=== PATIENT | male | born 1980 | race Caucasian/White ===

== ENCOUNTER → 2016-08-17 | Outpatient (REF) | LOC: WSOH 13:00 | DX: Z00.00 Encounter for general adult medical examination without abnormal findings (principal) ==

== ENCOUNTER → 2020-03-18 | Outpatient (CLI) | payer OTHER | LOC: COL.RAD 08:43 | DX: K21.9 Gastro-esophageal reflux disease without esophagitis (principal) ==

== ENCOUNTER 2020-05-17 10:23 | Day surgery (SDC) | payer BC ==
[~2020-05-17] VITALS: Ht 180.3 cm; Wt 88.9 kg
[2020-05-17] VITALS (10 sets, daily range): BP systolic 132–148; BP diastolic 74–91; PULSE 78–98; TEMP 97.5–98.7
[2020-05-17] MEDS ORDERED: DEXILANT60 MG PO (11:21)
[2020-05-17] MEDS ORDERED: PRINIVIL10 MG PO (11:21)
[2020-05-17] MEDS ORDERED: CLARITIN 1010 MG/TAB PO (11:22)
[2020-05-17] MEDS ORDERED: PEPCID 20MG TAB20 MG PO (11:23)
[2020-05-17] MEDS ORDERED: ONE-A-DAY ESSE1 EACH PO (11:23)
--- NOTE | 2020-05-17 20:27 | NUR ---
Resting in bed. Assessment complete. Lungs clear. Heart sounds normal. Bowels active x4. Pulses present throughout. No edema noted. INT left forearm without complications. Reports 5/10 pain in ABD, improving with norco. x5 lap sites with 1 site to left ABD with mild drainage. Denies other needs at this time. Will monitor.
--- NOTE | 2020-05-18 00:03 | NUR ---
Resting in bed. Denies needs. Call light in reach.
[2020-05-18 03:04] VITALS: BP 133/89; PULSE 95; TEMP 98.4
--- NOTE | 2020-05-18 04:16 | NUR ---
Ambulating in hallway. Denies needs. Call light in reach.
--- NOTE | 2020-05-18 06:16 | NUR ---
Patient required norco for pain control throughout night and this AM. Reporting pain 4/10 this AM. Ambulated throughout hallways during night. Denies needs this AM. Call light in reach.
--- NOTE | 2020-05-18 06:47 | NUR ---
Report given to [facility] Leary
[2020-05-18 07:54] VITALS: BP 139/79; PULSE 79; TEMP 98.4
--- NOTE | 2020-05-18 09:29 | NUR ---
Initial visit; Patient thanked [facility] for looking in on him and offering God's blessings and to keep him in her prayers.
--- NOTE | 2020-05-18 09:37 | NUR ---
Patient alert and oriented, answers questions appropriately. See assessment. Abdomen soft, non tender, non distended. Bowel sounds active x4 quads. No flatus. Lap sites to abdomen with dressing CDI. Post op exercises reviewed with patient. Ambulates several times in the halls. C/o pain 4/10 to left shoulder.
--- NOTE | 2020-05-18 10:42 | NUR ---
Recovery Room Nurse met with patient to discuss discharge planning. Patient lives alone in [place] and is employed with [employer]. Patient sees Dr. Clark for primary care and obtains medications from [facility] with no difficulties. Patient does not use any DME and is independent with [employer]. Patient does not have DPOA-HC. Patient is not and has no adult children. Patient's next of kin would be his mother, Thelma (ph#[phone]). Patient plans on returning home at discharge. No needs identified at this time.
[2020-05-18 11:31] VITALS: BP 129/92; PULSE 70; TEMP 98.1
[2020-05-18] MEDS ORDERED: ULTRAM 50MG TAB50 MG PO (13:39)
--- NOTE | 2020-05-18 16:11 | NUR ---
Discharge instructions reviewed with patient, verbalized understanding. Discharged via wheelchair to auto/home with family at 1510.
== END 2020-05-18 15:10 | disposition home or self-care (01) ==
LOC: SDCO 10:23 → SURG 15:45 → SDCO 05-18 15:10
DX: K21.9 Gastro-esophageal reflux disease without esophagitis (principal); K44.9 Diaphragmatic hernia without obstruction or gangrene; I10 Essential (primary) hypertension; K59.00 Constipation, unspecified; Z80.0 Family history of malignant neoplasm of digestive organs; Z87.891 Personal history of nicotine dependence; Z88.8 Allergy status to other drugs, medicaments and biological substances; K22.70 Barrett's esophagus without dysplasia; G89.29 Other chronic pain
CPT/HCPCS: OP; J1170; J2250; J2405; J2550; J2704; J3010; J7120